=== PATIENT | female | born 2000 | race Caucasian/White ===

== ENCOUNTER 2020-12-29 10:24 | Emergency (ER) | payer OTHER ==
[2020-12-29 12:16] LABS: Bilirubin Neg (Negative); Blood, Urine 25 (Negative); Clarity Slightly Cloudy (Clear); Glucose, Urine (Dipstick) Normal (Negative); Ketone, Urine Negative (Negative); Leukocyte 25 (Negative); Nitrite Negative (Negative); Protein, Urine (Dipstick) Negative (Neg-Trace); Urobilinogen Normal mg/dL (Less than 2)
[2020-12-29 12:20] LABS: Pregnancy Test - Urine (BHCG) POSITIVE (Negative); Pregu Control Background? CLEAR/WHITE (CLR/WHITE); Pregu Control Bar Appear? YES (CONTROL BAR)
[2020-12-29 12:30] LABS: Bacteria/HPF 2+ HPF (None Seen); RBC/HPF 0-3 HPF (0-3); WBC/HPF 0-3 HPF (0-3)
== END 2020-12-29 14:42 | disposition home or self-care (01) ==
LOC: CSHERS 10:24
DX: O99.891 Other specified diseases and conditions complicating pregnancy (principal); R10.2 Pelvic and perineal pain; R11.0 Nausea; Z3A.01 Less than 8 weeks gestation of pregnancy
CPT/HCPCS: 81003; 81015; 81025; 84702; 86900; 86901; 87086

== ENCOUNTER 2021-04-08 08:01 | Outpatient (CLI) | payer OTHER | END 2021-04-08 08:02 | disposition home or self-care (01) | LOC: CSHULT 08:01 | PROVIDERS: ATTEND Family Medicine | DX: O09.892 Supervision of other high risk pregnancies, second trimester (principal); Z3A.21 21 weeks gestation of pregnancy | CPT/HCPCS: 76805 ==

== ENCOUNTER 2021-08-06 09:19 | Inpatient (IN) | payer OTHER ==
[2021-08-06] MEDS ORDERED: Acetaminophen 500 MG TAB PO PRN (10:07)
[2021-08-06] MEDS ORDERED: Methylergonovine 0.2 MG/ML VIAL IM PRN (10:07)
[2021-08-06] MEDS ORDERED: Diphenoxylate HCl/Atropine Tablet PO PRN (10:07)
[2021-08-06] MEDS ORDERED: HYDROcodone/Acetaminophen 5/325 mg Tablet PO PRN (10:07)
[2021-08-06] MEDS ORDERED: Promethazine HCl 25 MG/ML VIAL IM PRN ×3 (10:07→20:33)
[2021-08-06] MEDS ORDERED: Ondansetron PF 4 MG/2 ML Vial IVP PRN ×3 (10:07→20:33)
[2021-08-06] MEDS ORDERED: Misoprostol 200 MCG TAB PR PRN (10:07)
[2021-08-06] MEDS ORDERED: Lidocaine 1% (PF) 30 ML VIAL SC PRN (10:07)
[2021-08-06] MEDS ORDERED: Ibuprofen 800 MG TAB PO PRN (10:07)
[2021-08-06] MEDS ORDERED: Butorphanol Tartrate 1 MG/ML VIAL SLOW IVP PRN (10:07)
[2021-08-06] MEDS ORDERED: Carboprost 250 MCG/ML AMP IM PRN (10:07)
[2021-08-06] MEDS ORDERED: hydrALAZINE 20 MG/ML VIAL SLOW IVP PRN ×2 (10:07→20:33)
[2021-08-06] MEDS ORDERED: Penicillin G Potassium 5 MILL.UNITS in Sodium Chloride 0.9% 100 ML IVPB SCH (10:15)
[2021-08-06] MEDS ORDERED: NS w/ Oxytocin 30 units 500 ML IV SCH ×2 (10:15)
[2021-08-06] MEDS ORDERED: Penicillin G Potassium 5 MILL.UNITS VIAL ONE (10:20)
[2021-08-06 10:48] LABS: Hemoglobin 11.3 g/dL (12.0-15.5); Mean Corpuscular HGB CONC 33.7 g/dL (32.0-36.0); Mean Corpuscular Hemoglobin 30.2 pg (27.0-33.0); Mean Corpuscular Volume 89.6 fl (81.6-98.3); Mean Platelet Volume 10.7 fl (7.4-10.4); Platelet Count 244 10x3/uL (150-450); RBC Distribution Width 12.3 % (11.5-14.5); Red Blood Cell (RBC) Count 3.74 10x6/uL (3.90-5.03)
[2021-08-06 11:24] LABS: Hep B Surf Ag Non-Reactive S/CO (NonReactive); Syphilis Antibody Nonreactive (Nonreactive); Syphilis Antibody Index 0.05 S/CO (<1.00 Non-Reactive)
[2021-08-06 11:31] LABS: HBSAg Index 0.18 S/CO (0-0.99)
[2021-08-06 12:24] LABS: HIV (1/2) Antibody/Antigen Non-Reactive (NonReactive); HIV 1/2 INDEX 0.12 S/CO (<1.00)
[2021-08-06 12:34] VITALS: BMI 27.4
[2021-08-06] MEDS ORDERED: Fentanyl 2 mcg/Bup 0.1% Cadd 100 ML ONE (14:12)
[2021-08-06] MEDS: Penicillin G 2.5 MILL.units 2.5 MILL.UNITS in Premix Bag 1 BAG IVPB SCH (14:44)
[2021-08-06] MEDS: Lactated Ringer's 1,000 ML IV SCH (14:46)
[2021-08-06] MEDS ORDERED: Moisturizing Cream (Eucerin) 113 GM JAR TOP PRN (14:47)
[2021-08-06] MEDS ORDERED: diphenhydrAMINE 50 MG/ML VIAL IVP PRN (14:47)
[2021-08-06] MEDS ORDERED: Acetaminophen 325 MG TAB PO PRN (14:47)
[2021-08-06] MEDS ORDERED: ePHEDrine Sulfate 50 MG/10 ML VIAL SLOW IVP PRN (14:47)
[2021-08-06] MEDS ORDERED: Naloxone HCl 0.4 mg/ml Vial IVP PRN ×2 (14:47)
[2021-08-06] MEDS ORDERED: Communication Order-Pharmacy FS SCH (15:00)
[2021-08-06] MEDS ORDERED: Fentanyl 2 mcg/Bupivacaine 0.1% Cassette 100 ML EPIDURAL SCH (15:00)
[2021-08-06] MEDS ORDERED: Lactated Ringer's 500 ML IV PRN (15:02)
[2021-08-06] MEDS ORDERED: diphenhydrAMINE 25 MG CAP PO PRN (20:33)
[2021-08-06] MEDS ORDERED: Benzocaine-Menthol 82.5 ML CAN TOP PRN (20:33)
[2021-08-06] MEDS ORDERED: Boostrix 0.5 ML (Tdap) VIAL IM ONE (20:33)
[2021-08-06] MEDS ORDERED: Bisacodyl 10 MG SUPP PR PRN (20:33)
[2021-08-06] MEDS ORDERED: Milk Of Magnesia 30 ML UDCUP PO PRN (20:33)
[2021-08-06] MEDS: Docusate 100 MG CAP PO SCH (21:31)
[2021-08-06] MEDS: Ibuprofen 800 MG TAB PO SCH (21:31)
[2021-08-06] MEDS: Lanolin Ointment 7 GM TUBE TOP PRN (21:34)
[2021-08-07] MEDS: Ibuprofen 800 MG TAB PO SCH ×3 (04:57→20:40)
[2021-08-07] MEDS: Lanolin Ointment 7 GM TUBE TOP PRN (07:15)
[2021-08-07] MEDS: HYDROcodone/Acetaminophen 5/325 mg Tablet PO PRN ×3 (07:16→20:41)
[2021-08-07] MEDS: Ferrous Sulfate 325 MG TAB PO SCH ×2 (08:07→15:12)
[2021-08-07] MEDS: Penicillin G 2.5 MILL.units 2.5 MILL.UNITS in Premix Bag 1 BAG IVPB SCH ×2 (08:07→08:08)
[2021-08-07] MEDS: Lactated Ringer's 1,000 ML IV SCH (08:08)
[2021-08-07] MEDS: Docusate 100 MG CAP PO SCH ×2 (08:30→20:40)
[2021-08-07] MEDS ORDERED: Prenatal Vitamin 1 TAB PO SCH (09:00)
[2021-08-07 17:41] VITALS: BP 117/63; TEMP 97.6
== END 2021-08-07 20:45 | disposition home or self-care (01) | DRG 806 ==
LOC: CSHLD 09:19 → CSHPP 20:30
PROVIDERS: ADMIT Family Medicine; ATTEND Family Medicine
PROC: 10E0XZZ Delivery of Products of Conception, External Approach (ICD-10-PCS; principal; 2021-08-06)
PROC: 3E0334Z Introduction of Serum, Toxoid and Vaccine into Peripheral Vein, Percutaneous Approach (ICD-10-PCS; 2021-08-06)
PROC: 10907ZC Drainage of Amniotic Fluid, Therapeutic from Products of Conception, Via Natural or Artificial Opening (ICD-10-PCS; 2021-08-06)
DX: O99.824 Streptococcus B carrier state complicating childbirth (principal); O98.52 Other viral diseases complicating childbirth; Z37.0 Single live birth; O26.893 Other specified pregnancy related conditions, third trimester; Z67.41 Type O blood, Rh negative; Z3A.38 38 weeks gestation of pregnancy; Z20.822 Contact with and (suspected) exposure to COVID-19; B00.9 Herpesviral infection, unspecified; Z79.899 Other long term (current) drug therapy; O69.81X0 Labor and delivery complicated by cord around neck, without compression, not applicable or unspecified
CPT/HCPCS: 36415; 51702; 85027; 85461; 86780; 86850; 86900; 86901; 87340; 87389; 90384; 96372; J2540; J2590; J3490; J7120; U0003; U0005

== ENCOUNTER 2021-09-28 11:12 | Emergency (ER) | payer OTHER ==
[2021-09-28 13:14] LABS: Bilirubin Neg (Negative); Blood, Urine Negative (Negative); Clarity Slightly Cloudy (Clear); Glucose, Urine (Dipstick) Normal (Negative); Ketone, Urine Negative (Negative); Leukocyte 500 (Negative); Nitrite Negative (Negative); Protein, Urine (Dipstick) Negative (Neg-Trace); Urobilinogen Normal mg/dL (Less than 2)
[2021-09-28 13:48] LABS: #Basophils 0.1 10x3/uL (0.0-0.2); #Eosinphils 0.2 10x3/uL (0.0-0.5); #Monocytes 0.6 10x3/uL (0.0-1.1); #Neutrophils 2.6 10x3/uL (1.5-8.4); %Basophils 0.9 % (0.0-2.0); %Eosinophils 2.9 % (0.0-6.0); %Lymphocytes 36.7 % (18.0-47.0); %Monocytes 10.8 % (0.0-10.0); %Neutrophils 48.5 % (40.0-75.0); Hemoglobin 9.9 g/dL (12.0-15.5); Mean Corpuscular HGB CONC 31.8 g/dL (32.0-36.0); Mean Corpuscular Volume 91.2 fl (81.6-98.3); Platelet Count 358 10x3/uL (150-450); RBC Distribution Width 11.9 % (11.5-14.5); Red Blood Cell (RBC) Count 3.41 10x6/uL (3.90-5.03); White Blood Cell (WBC) Count 5.5 10x3/uL (3.5-10.5)
[2021-09-28 13:52] LABS: Squamous Epithelial 0-3 HPF (0-3)
[2021-09-28 13:53] LABS: Bacteria/HPF 2+ HPF (None Seen); Mucous/LPF 1+ LPF (<2+); RBC/HPF 0-3 HPF (0-3)
[2021-09-28 14:07] LABS: ALT (SGPT) 30 U/L (8-55); AST (SGOT) 20 U/L (5-34); Albumin 4.2 g/dL (3.5-5.0); Alkaline Phosphatase 85 U/L (40-110); Anion Gap 12 mmol/L (10-20); BUN (Urea Nitrogen) 7 mg/dL (7.0-18.7); Bilirubin, Total 0.4 mg/dL (0.2-1.2); Calc. Creatinine Clearance 0 mL/min (70-130); Calcium 9.4 mg/dL (7.8-10.44); Carbon Dioxide 25 mmol/L (22-29); Chloride 106 mmol/L (98-107); Estimated GFR 128; Globulin 3.5 g/dL (2.4-3.5); Glucose 102 mg/dL (70-105); Lipase 14 U/L (8-78); Potassium 3.8 mmol/L (3.5-5.1); Protein, Total 7.7 g/dL (6.0-8.3); Sodium 139 mmol/L (136-145)
[2021-09-28 14:10] LABS: BHCG - Serum Negative (NEGATIVE); Pregs Control Background? CLEAR/WHITE (CLR/WHITE); Pregs Control Bar Appear? YES (CONTROL BAR)
== END 2021-09-28 14:40 | disposition home or self-care (01) ==
LOC: CSHERS 11:12
DX: N39.0 Urinary tract infection, site not specified (principal); K80.80 Other cholelithiasis without obstruction
CPT/HCPCS: 36415; 76705; 80053; 81003; 81015; 83690; 84703; 85025